=== PATIENT | female | born 1935 | race Caucasian/White ===

== ENCOUNTER 2022-05-20 12:36 | Inpatient (IN) | payer OTHER ==
[~2022-05-20] VITALS: Ht 160 cm; Wt 55.8 kg
[2022-05-20 12:54] VITALS: BP_SYST 135
--- NOTE | 2022-05-20 13:05 | NUR ---
Patient to ER bed 7 to gown for evaluation. Side rails up. Report given to .
--- NOTE | 2022-05-20 13:10 | NUR ---
PT CAME IN TO ED VIA AMBULANCE ACCOMPANIED BY DAUGHTER. PT IS AOX3 DAUGHTER STATES PT HAS DEMENTIA. PT LIVES IN ASSISSTED LIVING AND FELL OFF A ROLLING CHAIR WHILE ATTEMPTING TO PUT SOMETHING AWAY. PT STATES PAIN IS 7/10 ON LEFT ARM AND LEFT LEG WHEN ATTEMTING TO MOVE IT. PLACED ON MONITOR. SIDERAILS UP AND BED AT LOWEST POSITION.
--- NOTE | 2022-05-20 13:15 | NUR ---
ER at bedside examining patient.
--- NOTE | 2022-05-20 14:50 | NUR ---
Dr. REYNOSO at bedside examining patient.
[2022-05-20] MEDS ORDERED: LORazepam 2 MG/ML VIAL IVP PRN (17:15)
[2022-05-20] MEDS ORDERED: POTASSIUM CHLORIDE 20 MEQ TAB.PRT.SR PO PRN (17:15)
[2022-05-20] MEDS ORDERED: MUPIROCIN 2% TOPICAL OINTMENT 22 GM NS PRN (17:15)
[2022-05-20] MEDS ORDERED: DOCUSATE SODIUM 100 MG CAPSULE PO PRN (17:15)
[2022-05-20] MEDS ORDERED: ACETAMINOPHEN 325 MG TABLET PO PRN ×2 (17:15→17:30)
[2022-05-20] MEDS ORDERED: ONDANSETRON HCL 4 MG/2 ML VIAL IVP PRN (17:15)
--- NOTE | 2022-05-20 17:34 | NUR ---
Pt apeared to have a short syncapole episode. Pt currently a&o x 4. VSS. IV started on right av and fluids administered per MD.
[2022-05-20] MEDS ORDERED: NACL 0.9% 1,000 ML IV ONE (18:00)
--- NOTE | 2022-05-20 18:01 | NUR ---
Admit bed requested Patient will be admitted to care of . Admitted to MS unit. Diagnosis LEFT FEMUR FRACTURE Inpatient (Yes or No) Y Observation (Yes or No) N Orientation concerns or request close to nursing station (Yes or No) N Covid Status N On vent or bipap N Isolation requirements N Needs a sitter N From Home (Yes or if No enter name of facility) YES Requires Dialysis (Yes or No) N Med Rec Completed (Yes of No) Y Addendum: 05/20/22 at 1849 by [email or web address] FROM [facility]
[2022-05-20 18:28] LABS: ANION GAP 11 (5-15); CALCIUM 8.4 mg/dL (8.4-11.0); CHLORIDE 107 mmol/L (98-107); CREATININE 0.78 mg/dL (0.55-1.30); GLUCOSE 146 mg/dL (70-99); UREA NITROGEN, BLOOD 15 mg/dL (8-21)
[2022-05-20 18:34] LABS: BASOPHILS % (AUTO) 0.3 % (0.0-2.0); EOSINOPHILS % (AUTO) 0.1 % (0.0-4.0); HEMOGLOBIN 11.9 g/dL (12.0-16.0); LYMPHOCYTES # (AUTO) 1.1 K/uL (1.0-5.5); LYMPHOCYTES % (AUTO) 10.8 % (20.5-51.5); MEAN CORPUSCULAR HEMOGLOBIN 31 pg (27-31); MEAN CORPUSCULAR HGB CONC 34 % (32-36); MEAN CORPUSCULAR VOLUME 92 fL (79.0-98.0); MONOCYTES % (AUTO) 10.2 % (1.7-9.3); NEUTROPHILS # (AUTO) 7.9 K/uL (1.8-7.7); NEUTROPHILS % (AUTO) 78.6 % (40.0-70.0); PLATELET COUNT (AUTO) 190 K/uL (130-430); RED BLOOD CELL COUNT(AUTO) 3.81 MIL/uL (4.2-6.2); RED CELL DISTRIBUTION WIDTH 13.6 % (9.0-15.0); WHITE BLOOD COUNT (AUTO) 10.1 K/uL (4.8-10.8)
[2022-05-20] MEDS: MAGNESIUM SULFATE 50 ML IV PRN (18:43)
--- NOTE | 2022-05-20 18:59 | NUR ---
Magnesium IV pulled but not given. Charted as given, but wasn't given. Will return unused bag to pharmacy.
[2022-05-20] MEDS ORDERED: DONE10TA44 PO (19:25)
[2022-05-20] MEDS ORDERED: MEMA10TA56 PO (19:25)
[2022-05-20] MEDS ORDERED: ERGO1250 (19:25)
[2022-05-20] MEDS ORDERED: [UNRECOGNIZED DRUG - CODE] PO (19:25)
[2022-05-20] MEDS ORDERED: SYN50 PO (19:25)
--- NOTE | 2022-05-20 19:26 | NUR ---
Medication reconciliation completed with information provided by DAUGHTER AT BEDSIDE. Any prior medication reconciliation on file was reviewed and corrected.
--- NOTE | 2022-05-20 19:51 | NUR ---
Pt in mild pain since arival, but prefers no pain medication unless untollerable. Will continue to monitor.
--- NOTE | 2022-05-20 22:42 | NUR ---
Report given to Mario [facility]NS[facility]. Pt l;aet and orient x 2 per baseline, VSS. no signs of acute distress. Voided 300 mL vi puir wick since time in ER.
--- NOTE | 2022-05-20 22:46 | NUR ---
Patient will be admitted to care of Tigre GALVEZ Admitted to [facility] unit. Will go to room 103a. Belongings list completed. Complete and up to date summary report printed. SBAR report to be given at bedside with opportunity for questions.
[2022-05-20 23:08] VITALS: BP_SYST 144
--- NOTE | 2022-05-20 23:08 | NUR ---
Admission Note Received patient from ER with diagnosis of LEFT FEMUR FRACTURE. Initial Plan of Care discussed-patient verbalized understanding. Oriented to room, call light, pain management and safety.
[2022-05-20] MEDS: MORPHINE 2 MG/ML INJ. SYRINGE IVP PRN (23:25)
[2022-05-21 00:33] VITALS: BP_SYST 113
[2022-05-21] MEDS: MORPHINE 2 MG/ML INJ. SYRINGE IVP PRN ×2 (03:25→22:28)
--- NOTE | 2022-05-21 03:25 | NUR ---
PAIN/NEW IV IV AT RIGHT AC NOT FLUSHING WELL, REDNESS NOTED IN AREA, REMOVED AT THIS TIME, CATHETER FULLY INTACT, NO ACTIVE BLEEDING. NEW IV INSERTED AT RIGHT WRIST, 22 GAUGE, PATIENT TOLERATED WELL. PRN MEDICATION GIVEN FOR PAIN AT THIS TIME. WILL MONITOR AND REASSESS.
--- NOTE | 2022-05-21 06:28 | NUR ---
CLOSING NOTE PATIENT IN BED, RESTING AT THIS TIME. NO S/S OF ACUTE DISTRESS. BREATHING EVEN AND UNLABORED. IV SITE IS PATENT, NO SIGNS OF INFILTRATION OR INFECTION NOTED. ALL NEEDS MET THROUGHOUT SHIFT. FALL, SAFETY PRECAUTIONS MAINTAINED THROUGHOUT SHIFT. WILL CONTINUE TO MONITOR UNTIL PATIENT CARE IS ENDORSED TO ONCOMING DAYSHIFT NURSE.
[2022-05-21 06:37] LABS: BASOPHILS % (AUTO) 0.3 % (0.0-2.0); EOSINOPHILS % (AUTO) 0.1 % (0.0-4.0); HEMOGLOBIN 10.2 g/dL (12.0-16.0); LYMPHOCYTES # (AUTO) 1.3 K/uL (1.0-5.5); LYMPHOCYTES % (AUTO) 13.9 % (20.5-51.5); MEAN CORPUSCULAR HEMOGLOBIN 31 pg (27-31); MEAN CORPUSCULAR HGB CONC 35 % (32-36); MEAN CORPUSCULAR VOLUME 89 fL (79.0-98.0); MONOCYTES # (AUTO) 1.2 K/uL (0.0-1.0); MONOCYTES % (AUTO) 12.4 % (1.7-9.3); NEUTROPHILS % (AUTO) 73.3 % (40.0-70.0); PLATELET COUNT (AUTO) 220 K/uL (130-430); RED BLOOD CELL COUNT(AUTO) 3.25 MIL/uL (4.2-6.2); RED CELL DISTRIBUTION WIDTH 13.4 % (9.0-15.0); WHITE BLOOD COUNT (AUTO) 9.6 K/uL (4.8-10.8)
[2022-05-21 07:13] LABS: ANION GAP 9 (5-15); CALCIUM 8.3 mg/dL (8.4-11.0); CHLORIDE 106 mmol/L (98-107); CREATININE 0.63 mg/dL (0.55-1.30); GLUCOSE 133 mg/dL (70-99); UREA NITROGEN, BLOOD 15 mg/dL (8-21)
[2022-05-21 13:41] VITALS: BP_SYST 93
[2022-05-21 17:27] VITALS: BP_SYST 107
--- NOTE | 2022-05-21 19:15 | NUR ---
OPENING NOTE REPORT RECEIVED FROM DAYSHIFT NURSE. PATIENT RECEIVED LYING IN BED, RESTING. NO S/S OF ACUTE DISTRESS. BREATHING EVEN AND UNLABORED. IV SITE PATENT, NO SIGNS OF INFILTRATION OR INFECTION NOTED. CALL LIGHT WITH PATIENT. BED ALARM ON. BED IS LOCKED AND AT LOWEST POSITION. WILL CONTINUE TO MONITOR.
--- NOTE | 2022-05-21 19:19 | NUR ---
patient confused but easily reoriented. no pain at rest. shoulder elevated and knee brace on. pt using purewick on/off. spoke with family regarding d/c planning.
[2022-05-21] MEDS: DONEPEZIL HCL 5 MG TABLET (ARICEPT) PO SCH (20:13)
[2022-05-21] MEDS: MEMANTINE HCL 5 MG TABLET PO SCH (20:13)
[2022-05-22 01:32] VITALS: BP_SYST 111
[2022-05-22] MEDS: LEVOTHYROXINE SODIUM 0.05 MG TABLET PO SCH (06:17)
--- NOTE | 2022-05-22 06:46 | NUR ---
CLOSING NOTE PATIENT IN BED, RESTING AT THIS TIME. NO S/S OF ACUTE DISTRESS. BREATHING EVEN AND UNLABORED. IV SITE PATENT, NO SIGNS OF INFILTRATION OR INFECTION NOTED. ALL NEEDS MET THROUGHOUT SHIFT. FALL, SAFETY PRECAUTIONS MAINTAINED THROUGHOUT SHIFT. WILL CONTINUE TO MONITOR UNTIL PATIENT CARE IS ENDORSED TO ONCOMING DAYSHIFT NURSE.
[2022-05-22 08:00] VITALS: BP_SYST 119
[2022-05-22] MEDS: MEMANTINE HCL 5 MG TABLET PO SCH ×2 (08:34→22:14)
[2022-05-22 11:35] VITALS: BP_SYST 114
[2022-05-22 18:13] VITALS: BP_SYST 116
--- NOTE | 2022-05-22 19:10 | NUR ---
pt a&o throughout shift. no c/o pain with rest, denies offer of pain medication. braces on. family at bedside. fall/safety precautions in place. good po intake.
--- NOTE | 2022-05-22 19:55 | NUR ---
Opening note Received patient awake, resting in bed, AOx2. No distress and presently denies pain. Nonlabored breathing on room air. IV to right wrist is saline locked and patent. She has immobilizer on left knee. Bed is locked in lowest position, side rails up 3x and call light w/in reach.
[2022-05-22 20:00] VITALS: BP_SYST 124
[2022-05-22] MEDS: DONEPEZIL HCL 5 MG TABLET (ARICEPT) PO SCH (22:14)
--- NOTE | 2022-05-22 22:14 | NUR ---
Meds Scheduled meds given. She swallowed pills whole, two at a time with water. She was stating that she was waiting for bus to take her [place] [facility]; able to redirect to time and location. She said forgot she was in hospital and thought it was Tuesday.
--- NOTE | 2022-05-23 00:55 | NUR ---
Incontinent Patient had small soft formed bowel movement and purewick dislodged. She was provided with yulia-care, new pad, linens and replaced purewick.
[2022-05-23 01:32] VITALS: BP_SYST 107
[2022-05-23] MEDS: LEVOTHYROXINE SODIUM 0.05 MG TABLET PO SCH (06:35)
[2022-05-23 08:00] VITALS: BP_SYST 106
[2022-05-23] MEDS: MEMANTINE HCL 5 MG TABLET PO SCH ×2 (08:52→20:17)
[2022-05-23 11:37] VITALS: BP_SYST 107
[2022-05-23 16:55] VITALS: BP_SYST 112
--- NOTE | 2022-05-23 18:20 | NUR ---
vss, no c/o pain at rest. left sided extremities remain in braces and elevated. pt remains in good spirits with good po intake. d/c planning.
[2022-05-23] MEDS: DONEPEZIL HCL 5 MG TABLET (ARICEPT) PO SCH (20:17)
[2022-05-24] MEDS: MORPHINE 2 MG/ML INJ. SYRINGE IVP PRN (04:21)
[2022-05-24] MEDS: LEVOTHYROXINE SODIUM 0.05 MG TABLET PO SCH (06:16)
--- NOTE | 2022-05-24 08:00 | NUR ---
received patient from pm nurse alert and oriented to self, pleasantly confused, able to verbalize needs, no c/o pain or discomfort at this time, will assume all care of patient
[2022-05-24] MEDS ORDERED: ASPI-1457 PO (08:09)
[2022-05-24] MEDS ORDERED: ASPIRIN 81 MG TABLET(ECOTRIN) PO ONE (09:00)
[2022-05-24] MEDS: MEMANTINE HCL 5 MG TABLET PO SCH ×2 (09:05→20:22)
[2022-05-24 11:25] VITALS: BP_SYST 120
[2022-05-24 15:30] VITALS: BP_SYST 108
--- NOTE | 2022-05-24 16:00 | NUR ---
provided daughter detailed update on patients condition and any changes, all concerns addressed
[2022-05-24 20:00] VITALS: BP_SYST 127
[2022-05-24] MEDS: DONEPEZIL HCL 5 MG TABLET (ARICEPT) PO SCH (20:22)
[2022-05-25 00:22] VITALS: BP_SYST 108
[2022-05-25] MEDS: LEVOTHYROXINE SODIUM 0.05 MG TABLET PO SCH (06:01)
--- NOTE | 2022-05-25 06:48 | NUR ---
PATIENT IN BED RESTING, CONFUSED, LEFT ARM WITH HUMERUS FX AND LEFT LEG WITH PATELLA FX, LEFT LEG WITH BRACE IN PLACE, PITTING EDEMA TO LEFT ARM AND MILD EDEMA TO LEFT LEG. PATIENT ONLY C/O PAIN WITH TURNING AND CLEANING PATIENT, VSS, NO PRN MEDICATIONS GIVEN DURING THIS SHIFT.
[2022-05-25 07:52] VITALS: BP_SYST 147
[2022-05-25] MEDS: MEMANTINE HCL 5 MG TABLET PO SCH ×2 (09:22→20:10)
[2022-05-25 11:21] VITALS: BP_SYST 117
[2022-05-25] MEDS: ASPIRIN 81 MG TABLET(ECOTRIN) PO SCH (13:29)
[2022-05-25 15:39] VITALS: BP_SYST 114
--- NOTE | 2022-05-25 18:00 | NUR ---
Patient had an uneventful day, resting quietly in bed, no c/o pain. patient for discharge to SNF, awaiting placement. Continue with POC
[2022-05-25 20:00] VITALS: BP_SYST 102
[2022-05-25] MEDS: DONEPEZIL HCL 5 MG TABLET (ARICEPT) PO SCH (20:10)
[2022-05-26 01:06] VITALS: BP_SYST 111
[2022-05-26] MEDS: LEVOTHYROXINE SODIUM 0.05 MG TABLET PO SCH (06:01)
[2022-05-26 07:57] VITALS: BP_SYST 103
[2022-05-26] MEDS: ASPIRIN 81 MG TABLET(ECOTRIN) PO SCH (09:52)
[2022-05-26] MEDS: MEMANTINE HCL 5 MG TABLET PO SCH ×2 (09:53→20:38)
[2022-05-26 11:20] VITALS: BP_SYST 104
[2022-05-26 16:29] VITALS: BP_SYST 109
--- NOTE | 2022-05-26 18:47 | NUR ---
PATIENT RESTING COMFORTABLY IN BED, NO APPARENT DISTRESS NOT. C/O NAUSEA WITH LUNCH WHICH SUBSIDED SPONTANEOUSLY. PATIENT INSTRUCTED TO MAINTAIN NPO AFTER MIDNIGHT FOR SURGERY TOMORROW, PT'S DAUGHTER ALSO INFORMED. SNF PLACEMENT PENDING. CONTINUE WITH POC.
[2022-05-26 20:00] VITALS: BP_SYST 110
[2022-05-26] MEDS: DONEPEZIL HCL 5 MG TABLET (ARICEPT) PO SCH (20:37)
[2022-05-27] VITALS (7 sets, daily range): BP systolic 114–150
[2022-05-27] MEDS: LEVOTHYROXINE SODIUM 0.05 MG TABLET PO SCH (06:02)
[2022-05-27 07:08] LABS: BASOPHILS % (AUTO) 0.7 % (0.0-2.0); EOSINOPHILS # (AUTO) 0.1 K/uL (0.0-0.4); EOSINOPHILS % (AUTO) 1.7 % (0.0-4.0); HEMATOCRIT 25.7 % (36-48); HEMOGLOBIN 8.9 g/dL (12.0-16.0); LYMPHOCYTES # (AUTO) 0.9 K/uL (1.0-5.5); LYMPHOCYTES % (AUTO) 12.6 % (20.5-51.5); MEAN CORPUSCULAR HEMOGLOBIN 32 pg (27-31); MEAN CORPUSCULAR HGB CONC 35 % (32-36); MEAN CORPUSCULAR VOLUME 92 fL (79.0-98.0); MONOCYTES # (AUTO) 1.1 K/uL (0.0-1.0); MONOCYTES % (AUTO) 14.9 % (1.7-9.3); NEUTROPHILS % (AUTO) 70.1 % (40.0-70.0); PLATELET COUNT (AUTO) 319 K/uL (130-430); RED CELL DISTRIBUTION WIDTH 13.7 % (9.0-15.0); WHITE BLOOD COUNT (AUTO) 7.2 K/uL (4.8-10.8)
[2022-05-27 07:37] LABS: PROTHROMBIN TIME 9.8 SECS (9.5-12.5)
[2022-05-27 07:41] LABS: ANION GAP 8 (5-15); CALCIUM 8.8 mg/dL (8.4-11.0); CHLORIDE 104 mmol/L (98-107); GLUCOSE 102 mg/dL (70-99); UREA NITROGEN, BLOOD 18 mg/dL (8-21)
[2022-05-27 08:14] LABS: BILIRUBIN,URINE NEGATIVE (NEGATIVE); BLOOD, URINE NEGATIVE (NEGATIVE); CLARITY/URINE CLEAR (CLEAR); COLOR,URINE YELLOW (YELLOW); GLUCOSE,URINE NEGATIVE (NEGATIVE); KETONES,URINE NEGATIVE (NEGATIVE); LEUKOCYTE ESTERASE ,URINE NEGATIVE (NEGATIVE); NITRITE, URINE NEGATIVE (NEGATIVE); PH,URINE 6.5 (5.0-8.0); PROTEIN URINE NEGATIVE (NEGATIVE)
[2022-05-27] MEDS: MEMANTINE HCL 5 MG TABLET PO SCH ×2 (09:00→20:44)
[2022-05-27] MEDS: ASPIRIN 81 MG TABLET(ECOTRIN) PO SCH (09:00)
[2022-05-27] MEDS ORDERED: ceFAZolin SODIUM 1 GM VIAL ONE (10:21)
[2022-05-27] MEDS ORDERED: DEXAMETHASONE SOD PHOSPHATE 4 MG/ML VIAL ONE (10:21)
[2022-05-27] MEDS ORDERED: MIDAZOLAM HCL 2 MG/2 ML VIAL (VERSED) ONE (10:21)
[2022-05-27] MEDS ORDERED: fentaNYL CITRATE/PF 100 MCG/2 ML AMP ONE (10:21)
[2022-05-27] MEDS ORDERED: LR 1,000 ML IV.SOLN IV ONE (10:21)
[2022-05-27] MEDS ORDERED: PROPOFOL 200MG/ 20ML VIAL (DIPRIVAN) IV ONE (10:21)
[2022-05-27] MEDS ORDERED: ONDANSETRON HCL 4 MG/2 ML VIAL ONE (10:21)
[2022-05-27] MEDS ORDERED: METOCLOPRAMIDE HCL 10 MG/2 ML VIAL ONE (10:21)
[2022-05-27] MEDS ORDERED: NS IRRIG SOLN 1000 ML IR ONE (10:21)
[2022-05-27] MEDS ORDERED: HYDROmorphone 1 MG/ML INJ. CARTRIDGE IVP PRN (12:45)
[2022-05-27] MEDS ORDERED: KETOROLAC TROMETHAMINE 30 MG VIAL IVP PRN (12:45)
[2022-05-27] MEDS ORDERED: ONDANSETRON HCL 4 MG/2 ML VIAL IVP PRN (12:45)
[2022-05-27] MEDS ORDERED: NALOXONE HCL 0.4 MG/ML AMP (NARCAN) IVP PRN ×2 (12:45)
[2022-05-27] MEDS ORDERED: LR 1,000 ML IV SCH (12:45)
[2022-05-27] MEDS ORDERED: KETOROLAC TROMETHAMINE 30 MG VIAL ONE (13:12)
--- NOTE | 2022-05-27 13:30 | NUR ---
RECEIVED PT BACK FROM SURGERY. PT IS A/A/OX1, CONFUSED HX OF DEMENTIA. PT IS SLEEPING BUT EASILY AROUSABLE. VITAL SIGNS STABLE. AFEBRILE. LEFT LEG DRESSING C/D/I WITH IMMOBILIZER ON. RIGHT LEG SCD ON. SKIN ASSESSMENT DONE, NO SKIN ISSUES NOTED. PT POSITIONED TO COMFORT. WILL MONITOR PT CLOSELY.
[2022-05-27] MEDS: MORPHINE 2 MG/ML INJ. SYRINGE IVP PRN (14:14)
--- NOTE | 2022-05-27 20:00 | NUR ---
OPENING Patient resting in bed, unlabored breathing on room air. AOx1. Responds appropriately to questions but confused. Immobilizer to left leg s/p surgery today. Denies numbness or tingling, skin warm and dry, patient able to wiggle toes. Patient denies pain at this time. Dressing to left leg clean/dry/intact. Bruising noted to left arm. Safety precautions in place.
[2022-05-27] MEDS: DONEPEZIL HCL 5 MG TABLET (ARICEPT) PO SCH (20:44)
[2022-05-28] VITALS: BP_SYST 122
--- NOTE | 2022-05-28 01:07 | NUR ---
ROUNDS Patient asleep in bed, unlabored breathing on room air. Safety precautions in place.
[2022-05-28] MEDS: MORPHINE 2 MG/ML INJ. SYRINGE IVP PRN ×3 (02:42→21:35)
--- NOTE | 2022-05-28 05:37 | NUR ---
Patient resting in bed, unlabored breathing on room air, no distress noted. Immobilizer to left leg in place, dressing CDI, able to move toes. Given morphine PRN for complaint of pain to left knee with relief. Patient incontinent of urine. Gown and linens changed. Purewick in place. Patient forgetful/confused but at times is oriented to the fact that she is in the hospital. Reorientation provided as needed. Safety precautions in place.
[2022-05-28] MEDS: LEVOTHYROXINE SODIUM 0.05 MG TABLET PO SCH (06:39)
--- NOTE | 2022-05-28 06:52 | NUR ---
Spoke on the phone with patient's daughter Emerald who stated she will visit later today and would like to speak to the leather case finisher. Patient resting in bed, no distress noted, CSM to left lower extremity intact. With reminders and instruction, patient able to demonstrate correct technique with incentive spirometer, reaching 1000-1500mL. Safety precautions in place.
[2022-05-28 06:54] LABS: BASOPHILS % (AUTO) 0.3 % (0.0-2.0); EOSINOPHILS % (AUTO) 0.5 % (0.0-4.0); HEMATOCRIT 26.2 % (36-48); HEMOGLOBIN 8.9 g/dL (12.0-16.0); LYMPHOCYTES # (AUTO) 1.5 K/uL (1.0-5.5); LYMPHOCYTES % (AUTO) 15.5 % (20.5-51.5); MEAN CORPUSCULAR HEMOGLOBIN 31 pg (27-31); MEAN CORPUSCULAR HGB CONC 34 % (32-36); MEAN CORPUSCULAR VOLUME 92 fL (79.0-98.0); MONOCYTES # (AUTO) 1.6 K/uL (0.0-1.0); MONOCYTES % (AUTO) 16.3 % (1.7-9.3); NEUTROPHILS # (AUTO) 6.5 K/uL (1.8-7.7); NEUTROPHILS % (AUTO) 67.4 % (40.0-70.0); PLATELET COUNT (AUTO) 363 K/uL (130-430); RED BLOOD CELL COUNT(AUTO) 2.86 MIL/uL (4.2-6.2); RED CELL DISTRIBUTION WIDTH 13.9 % (9.0-15.0); WHITE BLOOD COUNT (AUTO) 9.7 K/uL (4.8-10.8)
[2022-05-28 07:42] LABS: ANION GAP 9 (5-15); CALCIUM 8.5 mg/dL (8.4-11.0); CHLORIDE 101 mmol/L (98-107); CREATININE 0.83 mg/dL (0.55-1.30); GLUCOSE 91 mg/dL (70-99); UREA NITROGEN, BLOOD 18 mg/dL (8-21)
--- NOTE | 2022-05-28 07:51 | NUR ---
OPENING NOTES: PT IN BED WITH EYES CLOSED. A/O X 1. REPOSITIONED PT WITH MAINSPRING FORMER BRACE END TO EAT BREAKFAST. NO S/S OF DISTRESS. PAIN REPORTED AT LEVEL 2. BREATHING IS EVEN AND UNLABORED ON RA. ALL NEEDS MET AT THIS TIME , SAFETY CHECKS MADE AND CALL LIGHT WITHIN REACH.
[2022-05-28 08:00] VITALS: BP_SYST 124
--- NOTE | 2022-05-28 08:07 | NUR ---
MD: DR MARKS AT BEDSIDE TALKING WITH PT. NO NEW ORDERS AT THIS TIME.
[2022-05-28] MEDS: MEMANTINE HCL 5 MG TABLET PO SCH ×2 (08:51→21:34)
[2022-05-28] MEDS: ASPIRIN 81 MG TABLET(ECOTRIN) PO SCH (08:51)
[2022-05-28 11:51] VITALS: BP_SYST 113
--- NOTE | 2022-05-28 12:00 | NUR ---
ROUNDS: PT IN BED EATING LUNCH WITH FAMILY AT BEDSIDE. NO S/S OF DISTRESS OR PAIN REPORTED. ALL NEEDS MET AT THIS TIME, SAFETY CHECKS MADE AND CALL LIGHT WITHIN REACH.
--- NOTE | 2022-05-28 12:48 | NUR ---
NOTES: SPOKE WITH GUARD SUPERVISORDarby DEBRA. SHE INFORMED THAT THE PT NEEDS PHYSICAL THERAPY AND TREATMENT NOTED BEFORE A BED CAN BE FOUND AT [facility]. CALLING DR RON NOW FOR PT ORDERS.
--- NOTE | 2022-05-28 14:00 | NUR ---
ROUNDS: PT IN BED WITH FAMILY AT BEDSIDE. NO S/S OF DISTRESS OR PAIN REPORTED. UPDATED FAMILY ABOUT PHYSICAL THERAPY ETA.
[2022-05-28 17:31] VITALS: BP_SYST 105
--- NOTE | 2022-05-28 18:08 | NUR ---
CLOSING NOTES: PT IN BED EATING DINNER AND WATCHING TV. NO S/S OF DISTRESS OR PAIN REPORTED. BREATHING IS EVEN AND UNLABORED ON RA. ALL NEEDS MET AT THIS TIME, SAFETY CHECKS MADE AND CALL LIGHT WITHIN REACH. WILL ENDORSE TO ASSOCIATE JUSTICE NURSE.
[2022-05-28 20:00] VITALS: BP_SYST 125
--- NOTE | 2022-05-28 20:00 | NUR ---
OPENING Patient resting in bed, unlabored breathing on room air. AOx1-2. Responds appropriately to questions but confused. Immobilizer to left leg. Denies numbness or tingling, patient able to wiggle toes. Dressing to left leg clean/dry/intact. Bruising noted to left arm. Safety precautions in place.
[2022-05-28] MEDS: DONEPEZIL HCL 5 MG TABLET (ARICEPT) PO SCH (21:34)
[2022-05-29] VITALS: BP_SYST 121
--- NOTE | 2022-05-29 | NUR ---
ROUNDS Patient resting in bed, no distress noted. On room air. Given morphine PRN for report of pain to left knee. CSM to left lower extremity intact. Patient spoke with her on the phone earlier. Incontinent of urine. Linens changed. Purewick in place. Safety maintained.
[2022-05-29] MEDS: LEVOTHYROXINE SODIUM 0.05 MG TABLET PO SCH (06:17)
--- NOTE | 2022-05-29 07:29 | NUR ---
CLOSING Patient resting in bed, no distress noted. Denies pain this morning. Immobilizer to left leg. Left arm in sling with bruising noted, tender to touch. Alert to self and place, forgetful but reorients. Safety precautions in place.
[2022-05-29 07:47] LABS: BASOPHILS # (AUTO) 0.1 K/uL (0.0-0.2); BASOPHILS % (AUTO) 0.7 % (0.0-2.0); EOSINOPHILS # (AUTO) 0.2 K/uL (0.0-0.4); EOSINOPHILS % (AUTO) 2.4 % (0.0-4.0); HEMATOCRIT 26.1 % (36-48); HEMOGLOBIN 8.9 g/dL (12.0-16.0); LYMPHOCYTES # (AUTO) 1.4 K/uL (1.0-5.5); LYMPHOCYTES % (AUTO) 16.6 % (20.5-51.5); MEAN CORPUSCULAR HEMOGLOBIN 31 pg (27-31); MEAN CORPUSCULAR HGB CONC 34 % (32-36); MEAN CORPUSCULAR VOLUME 92 fL (79.0-98.0); MONOCYTES # (AUTO) 1.5 K/uL (0.0-1.0); MONOCYTES % (AUTO) 17.4 % (1.7-9.3); NEUTROPHILS # (AUTO) 5.4 K/uL (1.8-7.7); NEUTROPHILS % (AUTO) 62.9 % (40.0-70.0); PLATELET COUNT (AUTO) 364 K/uL (130-430); RED BLOOD CELL COUNT(AUTO) 2.85 MIL/uL (4.2-6.2); RED CELL DISTRIBUTION WIDTH 14.1 % (9.0-15.0); WHITE BLOOD COUNT (AUTO) 8.7 K/uL (4.8-10.8)
[2022-05-29 08:00] VITALS: BP_SYST 122
[2022-05-29 08:10] LABS: ANION GAP 8 (5-15); CALCIUM 8.3 mg/dL (8.4-11.0); CHLORIDE 101 mmol/L (98-107); GLUCOSE 91 mg/dL (70-99); UREA NITROGEN, BLOOD 18 mg/dL (8-21)
--- NOTE | 2022-05-29 08:32 | NUR ---
OPENING NOTES: PT IN BED WITH EYES CLOSED. RESPONDED TO NAME. REPOSITIONED PT WITH PANAMA HAT HYDRAULIC PRESS OPERATOR TO EAT BREAKFAST. NO S/S OF DISTRESS OR PAIN REPORTED. BREATHING IS EVEN AND UNLABORED ON RA. ALL NEEDS MET AT THIS TIME , SAFETY CHECKS MADE AND CALL LIGHT WITHIN REACH.
[2022-05-29] MEDS: ENOXAPARIN SODIUM 30 MG/0.3 ML SYRINGE SUBCUT SCH (08:55)
[2022-05-29] MEDS: MEMANTINE HCL 5 MG TABLET PO SCH ×2 (08:55→21:46)
[2022-05-29] MEDS: ASPIRIN 81 MG TABLET(ECOTRIN) PO SCH (08:55)
--- NOTE | 2022-05-29 11:24 | NUR ---
NOTES: SPOKE WITH DAUGHTER TAE, ANSWERED HER QUESTIONS AND UPDATED HER ON THE PT STATUS. SHE VERBALIZED UNDERSTANDING AND SAID SHE WOULD BE VISITING TODAY WITH THE PT'S .
[2022-05-29 12:00] VITALS: BP_SYST 114
--- NOTE | 2022-05-29 12:43 | NUR ---
ROUNDS: FAMILY AT BEDSIDE. PT EATING LUNCH. ANSWERED FAMILY QUESTIONS AND GOT THEM CHAIRS. ALL NEEDS MET AT THIS TIME, SAFETY CHECKS MADE AND CALL LIGHT WITHIN REACH.
[2022-05-29 16:00] VITALS: BP_SYST 118
[2022-05-29] MEDS: MORPHINE 2 MG/ML INJ. SYRINGE IVP PRN (17:59)
--- NOTE | 2022-05-29 18:17 | NUR ---
CLOSING NOTES: PT IS EATING DINNER AND WATCHING TV. NO S/S OF DISTRESS. PAIN REPORTED AND PAIN MEDICATION ADMINISTERED. BREATHING IS EVEN AND UNLABORED ON RA. ALL NEEDS MET AT THIS TIME, SAFETY CHECKS MADE AND CALL LIGHT WITHIN REACH.
[2022-05-29 21:00] VITALS: BP_SYST 112
[2022-05-29] MEDS: DONEPEZIL HCL 5 MG TABLET (ARICEPT) PO SCH (21:46)
[2022-05-30 02:02] VITALS: BP_SYST 121
[2022-05-30] MEDS: LEVOTHYROXINE SODIUM 0.05 MG TABLET PO SCH (06:23)
--- NOTE | 2022-05-30 07:54 | NUR ---
OPENING NOTES: PT IN BED A/O X 1. PERFORMED NEURO ASSESSMENT ON PT. PT HAVING PAIN TO TOUCH ON LEFT ARM AND DIFFICULTY LIFTING IT. ABLE TO MOVE LEFT HAND. LEFT LEG IS ELEVATED WITH PILLOW SUPPORT, TOES ARE WARM TO TOUCH, PINK AND PT IS ABLE TO WIGGLE TOES. NO S/S OF DISTRESS OR PAIN REPORTED. BREATHING IS EVEN AND UNLABORED ON RA. ALL NEEDS MET AT THIS TIME, SAFETY CHECKS MADE AND CALL LIGHT WITHIN REACH.
[2022-05-30 08:00] VITALS: BP_SYST 111
[2022-05-30 08:21] LABS: BASOPHILS # (AUTO) 0.1 K/uL (0.0-0.2); BASOPHILS % (AUTO) 0.6 % (0.0-2.0); EOSINOPHILS # (AUTO) 0.2 K/uL (0.0-0.4); EOSINOPHILS % (AUTO) 2.5 % (0.0-4.0); HEMATOCRIT 25.5 % (36-48); HEMOGLOBIN 8.7 g/dL (12.0-16.0); LYMPHOCYTES # (AUTO) 1.3 K/uL (1.0-5.5); LYMPHOCYTES % (AUTO) 14.6 % (20.5-51.5); MEAN CORPUSCULAR HEMOGLOBIN 31 pg (27-31); MEAN CORPUSCULAR HGB CONC 34 % (32-36); MEAN CORPUSCULAR VOLUME 91 fL (79.0-98.0); MONOCYTES # (AUTO) 1.4 K/uL (0.0-1.0); NEUTROPHILS # (AUTO) 6.2 K/uL (1.8-7.7); NEUTROPHILS % (AUTO) 67.3 % (40.0-70.0); PLATELET COUNT (AUTO) 373 K/uL (130-430); RED CELL DISTRIBUTION WIDTH 13.8 % (9.0-15.0); WHITE BLOOD COUNT (AUTO) 9.2 K/uL (4.8-10.8)
[2022-05-30] MEDS: ENOXAPARIN SODIUM 30 MG/0.3 ML SYRINGE SUBCUT SCH (08:32)
[2022-05-30] MEDS: MEMANTINE HCL 5 MG TABLET PO SCH ×2 (08:32→21:14)
[2022-05-30] MEDS: ASPIRIN 81 MG TABLET(ECOTRIN) PO SCH (08:32)
[2022-05-30 08:40] LABS: ANION GAP 8 (5-15); CALCIUM 8.5 mg/dL (8.4-11.0); CHLORIDE 102 mmol/L (98-107); CREATININE 0.89 mg/dL (0.55-1.30); GLUCOSE 104 mg/dL (70-99); UREA NITROGEN, BLOOD 17 mg/dL (8-21)
--- NOTE | 2022-05-30 09:30 | NUR ---
ROUNDS: GAVE PT A BED BATH, CHANGED LINEN, APPLIED DEODORANT, MICHELET CARE, SHAMPOO CAP AND PT BRUSHED HER OWN TEETH. REPOSITIONED FOR COMFORT.
--- NOTE | 2022-05-30 10:24 | NUR ---
Pharmacy: PHARMACY CALLED THAT PT'S IV MORPHINE PRN HAD . CALLED DR MAHAJAN AND HE ORDERED NORCO [phone] PO Q8H PRN FOR THE PT. ORDERED PLACED.
[2022-05-30] MEDS ORDERED: NALOXONE HCL 0.4 MG/ML AMP (NARCAN) IVP PRN (10:30)
[2022-05-30 12:00] VITALS: BP_SYST 107
--- NOTE | 2022-05-30 12:22 | NUR ---
ROUNDS: PT SITTING UP IN BED EATING LUNCH. PT COMPLAINED OF FEELING COLD. GOT HER A BLANKET FROM THE WARMER AND WRAPPED IT AROUND HER SHOULDERS. NO S/S OF DISTRESS OR PAIN REPORTED. BREATHING IS EVEN AND UNLABORED. ALL NEEDS MET AT THIS TIME, SAFETY CHECKS MADE AND CALL LIGHT WITHIN REACH.
--- NOTE | 2022-05-30 13:05 | NUR ---
ROUNDS: FAMILY AT BEDSIDE. ANSWERED THEIR QUESTIONS AND UPDATED THEM ON PLAN OF CARE FOR PT. VERBALIZED UNDERSTANDING.
[2022-05-30 16:00] VITALS: BP_SYST 110
--- NOTE | 2022-05-30 16:23 | NUR ---
ROUNDS: PT IN BED WITH EYES CLOSED. NO S/S OF DISTRESS OR PAIN REPORTED. ALL NEEDS MET AT THIS TIME , SAFETY CHECKS MADE AND CALL LIGHT WITHIN REACH.
--- NOTE | 2022-05-30 18:21 | NUR ---
CLOSING NOTES: PT IS IN BED HAD JUST FINISHED EATING DINNER. PROVIDED MICHELET CARE. PT HAD URINATED. NO S/S OF DISTRESS OR PAIN REPORTED. BREATHING IS EVEN AND UNLABORED ON RA. ALL NEEDS MET AT THIS TIME, SAFETY CHECKS MADE AND CALL LIGHT WITHIN REACH.
[2022-05-30 20:00] VITALS: BP_SYST 125
[2022-05-30] MEDS: DONEPEZIL HCL 5 MG TABLET (ARICEPT) PO SCH (21:14)
[2022-05-31] MEDS: HYDROcodone/ACETAMIN 5-325 MG TAB (NORCO/ VICODIN) PO PRN ×3 (00:12→21:12)
[2022-05-31 03:06] VITALS: BP_SYST 122
[2022-05-31] MEDS: LEVOTHYROXINE SODIUM 0.05 MG TABLET PO SCH (06:02)
[2022-05-31 06:34] LABS: BASOPHILS # (AUTO) 0.1 K/uL (0.0-0.2); BASOPHILS % (AUTO) 0.7 % (0.0-2.0); EOSINOPHILS # (AUTO) 0.2 K/uL (0.0-0.4); EOSINOPHILS % (AUTO) 2.8 % (0.0-4.0); HEMATOCRIT 26.5 % (36-48); LYMPHOCYTES % (AUTO) 22.1 % (20.5-51.5); MEAN CORPUSCULAR HEMOGLOBIN 31 pg (27-31); MEAN CORPUSCULAR HGB CONC 34 % (32-36); MEAN CORPUSCULAR VOLUME 92 fL (79.0-98.0); MONOCYTES # (AUTO) 1.1 K/uL (0.0-1.0); MONOCYTES % (AUTO) 12.6 % (1.7-9.3); NEUTROPHILS # (AUTO) 5.5 K/uL (1.8-7.7); NEUTROPHILS % (AUTO) 61.8 % (40.0-70.0); PLATELET COUNT (AUTO) 417 K/uL (130-430); RED CELL DISTRIBUTION WIDTH 13.9 % (9.0-15.0); WHITE BLOOD COUNT (AUTO) 8.9 K/uL (4.8-10.8)
[2022-05-31 07:05] LABS: ANION GAP 8 (5-15); CALCIUM 8.3 mg/dL (8.4-11.0); CHLORIDE 104 mmol/L (98-107); CREATININE 0.83 mg/dL (0.55-1.30); GLUCOSE 89 mg/dL (70-99); UREA NITROGEN, BLOOD 16 mg/dL (8-21)
[2022-05-31 08:00] VITALS: BP_SYST 101
[2022-05-31] MEDS: ASPIRIN 81 MG TABLET(ECOTRIN) PO SCH (08:35)
[2022-05-31] MEDS: MEMANTINE HCL 5 MG TABLET PO SCH ×2 (08:36→21:11)
[2022-05-31] MEDS: ENOXAPARIN SODIUM 30 MG/0.3 ML SYRINGE SUBCUT SCH (08:36)
[2022-05-31 11:15] VITALS: BP_SYST 118
[2022-05-31 15:20] VITALS: BP_SYST 109
--- NOTE | 2022-05-31 15:55 | NUR ---
[facility] has not received authorization from [facility] for SNF
--- NOTE | 2022-05-31 16:11 | NUR ---
PHYSICAL THERAPY CO-SIGN The Physical Therapy Progress Notes documented by Tube Roller have been reviewed. Reviewed/Co-Signed by: Rafael Santos Documentation Done by:SAVAGE MORAN Addendum: 05/31/22 at 1611 by Rafael Santos PT Amended: Links added.
--- NOTE | 2022-05-31 18:46 | NUR ---
Shift Summary: patient is AAOX3-4. vitals are stable. patient and family updated on plan of care for shift. patient and family state they have no questions or concerns at this time. patient was able to sit on edge of bed with PT. will endorse to oncoming nurse. call light within reach, bed set to low, locked, and alarm on. q2h turns done during shift.
[2022-05-31 20:00] VITALS: BP_SYST 113
--- NOTE | 2022-05-31 20:19 | NUR ---
OPENING NOTES: Patient received from AM shift. Patient is confused AA&Ox1 very forgetful but and answer commands and express simple needs. Patient denies any pain or distress at this time. Patient is noted with a sling to the left arm and will express pain when the arm is moved, patient is able to installer molding and trim and move fingers with no discomfort, skin is warm to the touch and wrist pulse is palpable. Arm has been elevated with pillow for support. Soft brace is noted to the left lower extremity, and patient is post ORIF to the patella that has been completed on 05/27. Neuro Checks to lower extremity completed. Patient wiggles toes, is able to feel pressure, skin is warm to the touch and skin color is normal. Leg also has a been elevated with a pillow for support. No s/s of distress is noted and chest rise is even and unlabored on RA. Safety measures are in place as per protocol, will resume care.
[2022-05-31] MEDS: DONEPEZIL HCL 5 MG TABLET (ARICEPT) PO SCH (21:11)
[2022-06-01 00:14] VITALS: BP_SYST 107
[2022-06-01] MEDS: LEVOTHYROXINE SODIUM 0.05 MG TABLET PO SCH (06:10)
[2022-06-01] MEDS: HYDROcodone/ACETAMIN 5-325 MG TAB (NORCO/ VICODIN) PO PRN ×2 (06:13→14:13)
[2022-06-01 06:18] LABS: BASOPHILS % (AUTO) 0.6 % (0.0-2.0); EOSINOPHILS # (AUTO) 0.3 K/uL (0.0-0.4); EOSINOPHILS % (AUTO) 3.4 % (0.0-4.0); HEMOGLOBIN 8.9 g/dL (12.0-16.0); LYMPHOCYTES # (AUTO) 1.5 K/uL (1.0-5.5); LYMPHOCYTES % (AUTO) 18.4 % (20.5-51.5); MEAN CORPUSCULAR HEMOGLOBIN 31 pg (27-31); MEAN CORPUSCULAR HGB CONC 34 % (32-36); MEAN CORPUSCULAR VOLUME 91 fL (79.0-98.0); MONOCYTES % (AUTO) 12.5 % (1.7-9.3); NEUTROPHILS # (AUTO) 5.3 K/uL (1.8-7.7); NEUTROPHILS % (AUTO) 65.1 % (40.0-70.0); PLATELET COUNT (AUTO) 432 K/uL (130-430); RED BLOOD CELL COUNT(AUTO) 2.87 MIL/uL (4.2-6.2); RED CELL DISTRIBUTION WIDTH 14.1 % (9.0-15.0); WHITE BLOOD COUNT (AUTO) 8.1 K/uL (4.8-10.8)
[2022-06-01 06:49] LABS: ANION GAP 6 (5-15); CALCIUM 8.4 mg/dL (8.4-11.0); CHLORIDE 104 mmol/L (98-107); GLUCOSE 89 mg/dL (70-99); UREA NITROGEN, BLOOD 18 mg/dL (8-21)
--- NOTE | 2022-06-01 07:04 | NUR ---
CLOSING NOTES: CLOSING Patient resting in bed, no distress noted. Denies pain this morning. Immobilizer to left leg. Left arm in sling with bruising noted, tender to touch. Alert to self and place, forgetful but reorients. Safety precautions in place. Will differ care to AM shift nurse.
[2022-06-01 08:00] VITALS: BP_SYST 132
[2022-06-01] MEDS: MEMANTINE HCL 5 MG TABLET PO SCH ×2 (08:35→21:07)
[2022-06-01] MEDS: ENOXAPARIN SODIUM 30 MG/0.3 ML SYRINGE SUBCUT SCH (08:35)
[2022-06-01] MEDS: ASPIRIN 81 MG TABLET(ECOTRIN) PO SCH (08:35)
[2022-06-01 11:30] VITALS: BP_SYST 113
--- NOTE | 2022-06-01 15:39 | NUR ---
PHYSICAL THERAPY CO-SIGN The Physical Therapy Progress Notes documented by Filter Bed Placer have been reviewed. Reviewed/Co-Signed by: Rafael Santos Documentation Done by:SAVAGE MORAN Addendum: 06/01/22 at 1539 by Rafael Santos PT Amended: Links added.
[2022-06-01 16:35] VITALS: BP_SYST 126
[2022-06-01 20:00] VITALS: BP_SYST 101
[2022-06-01] MEDS: DONEPEZIL HCL 5 MG TABLET (ARICEPT) PO SCH (21:07)
[2022-06-02 02:21] VITALS: BP_SYST 131
[2022-06-02] MEDS: LEVOTHYROXINE SODIUM 0.05 MG TABLET PO SCH (06:39)
[2022-06-02 08:00] VITALS: BP_SYST 117
[2022-06-02] MEDS: ASPIRIN 81 MG TABLET(ECOTRIN) PO SCH (08:23)
[2022-06-02] MEDS: MEMANTINE HCL 5 MG TABLET PO SCH ×2 (08:23→22:15)
[2022-06-02] MEDS: ENOXAPARIN SODIUM 30 MG/0.3 ML SYRINGE SUBCUT SCH (08:23)
[2022-06-02 12:00] VITALS: BP_SYST 126; BP_SYST 140
[2022-06-02 16:00] VITALS: BP_SYST 121
--- NOTE | 2022-06-02 16:01 | NUR ---
PHYSICAL THERAPY CO-SIGN The Physical Therapy Progress Notes documented by Pest Control Service Technician have been reviewed. Reviewed/Co-Signed by: Rafael Santos Documentation Done by:SAVAGE MORAN Addendum: 06/02/22 at 1601 by Rafael Santos PT Amended: Links added.
[2022-06-02] MEDS: DONEPEZIL HCL 5 MG TABLET (ARICEPT) PO SCH (22:13)
[2022-06-03] MEDS: HYDROcodone/ACETAMIN 5-325 MG TAB (NORCO/ VICODIN) PO PRN ×4 (01:02→22:55)
--- NOTE | 2022-06-03 05:55 | NUR ---
closing notes pt was giving pain medication and was sleeping on and off. appear to be resting
[2022-06-03 08:00] VITALS: BP_SYST 109
[2022-06-03] MEDS: MEMANTINE HCL 5 MG TABLET PO SCH ×2 (08:41→21:00)
[2022-06-03] MEDS: ENOXAPARIN SODIUM 30 MG/0.3 ML SYRINGE SUBCUT SCH (08:41)
[2022-06-03] MEDS: ASPIRIN 81 MG TABLET(ECOTRIN) PO SCH (08:41)
[2022-06-03] MEDS: LEVOTHYROXINE SODIUM 0.05 MG TABLET PO SCH (08:50)
--- NOTE | 2022-06-03 10:11 | NUR ---
Shift Summary: patient is AAOX3. vitals are stable. patient updated on plan of care for shift. patient states she has no questions or concerns at this time. patient educated on use of call light if patient needs to ambulate for any reason due to patient being high risk for falls. patient states she understands. call light within reach, bed set to low, locked, and alarm on.
[2022-06-03 11:10] VITALS: BP_SYST 100
[2022-06-03 15:20] VITALS: BP_SYST 96
[2022-06-03] MEDS: DONEPEZIL HCL 5 MG TABLET (ARICEPT) PO SCH (21:00)
[2022-06-04 02:43] VITALS: BP_SYST 112
[2022-06-04 05:52] VITALS: BP_SYST 122
[2022-06-04] MEDS: LEVOTHYROXINE SODIUM 0.05 MG TABLET PO SCH (07:40)
[2022-06-04 08:00] VITALS: BP_SYST 111
--- NOTE | 2022-06-04 08:09 | NUR ---
closing notes pt n bed with safety precaution in place
[2022-06-04] MEDS: ASPIRIN 81 MG TABLET(ECOTRIN) PO SCH (09:08)
[2022-06-04] MEDS: MEMANTINE HCL 5 MG TABLET PO SCH (09:08)
[2022-06-04] MEDS: ENOXAPARIN SODIUM 30 MG/0.3 ML SYRINGE SUBCUT SCH (09:08)
--- NOTE | 2022-06-04 10:49 | NUR ---
Shift Summary: patient is AAXO2-3. vitals are stable. patient updated on plan of care for shift. patient states she has no questions or concerns at this time. patient educated on using call light if patient needs to ambulate for any reason due to patient being high risk for falls. patient states she understands. q2h turns continued. call light within reach, bed set to low, locked, and alarm on.
[2022-06-04 11:45] VITALS: BP_SYST 100
[2022-06-04] MEDS: HYDROcodone/ACETAMIN 5-325 MG TAB (NORCO/ VICODIN) PO PRN (12:04)
--- NOTE | 2022-06-04 15:37 | NUR ---
PHYSICAL THERAPY CO-SIGN The Physical Therapy Progress Notes documented by Shop Estimator have been reviewed. Reviewed/Co-Signed by: Cuco Goodson Documentation Done by:SAVAGE MORAN Addendum: 06/04/22 at 1537 by Cuco Goodson PT Amended: Links added.
--- NOTE | 2022-06-04 15:43 | NUR ---
Patient accepted at [facility] room 139 Number for report [phone]. Addendum: 06/04/22 at 1629 by Nicolle Aguilera RN Ambulance transport by Gee Gray [phone] at 5 PM- daughter notified of discharge and agreed to transfer.
[2022-06-04 15:50] VITALS: BP_SYST 108
[2022-06-04 16:40] VITALS: BP_SYST 111
--- NOTE | 2022-06-04 17:17 | NUR ---
Discharge Summary: patient is AAOX3. vitals are stable. PIV removed. patient and daughter given discharge instructions regarding activity, diet, follow up appointments, medication and halfway facility. patent and daughter state they have no questions or concerns upon discharge. patients daughter states she has all of patients personal belongings present with her upon discharge. patient going to [facility] in room 139 . report given to ELIZABETH Hayes. Abigail states she has no questions or concerns upon receiving report. bedside report given to JOHANN Griffiths [facility] [phone]. Tunde states he has no questions or concerns upon receiving patient. patient leaving unit on [facility] with assistance from transporters.
== END 2022-06-04 17:30 | DRG 516 ==
LOC: SED 12:36 → SMU 17:06
PROVIDERS: ADMIT Family Medicine; ATTEND Family Medicine
PROC: 0QSF04Z Reposition Left Patella with Internal Fixation Device, Open Approach (ICD-10-PCS; principal; 2022-05-27 10:21)
DX: S82.042A Displaced comminuted fracture of left patella, initial encounter for closed fracture (principal); S42.202A Unspecified fracture of upper end of left humerus, initial encounter for closed fracture; E83.51 Hypocalcemia; E03.9 Hypothyroidism, unspecified; G30.9 Alzheimer's disease, unspecified; R53.81 Other malaise; Z20.822 Contact with and (suspected) exposure to COVID-19; F02.80 Dementia in other diseases classified elsewhere, unspecified severity, without behavioral disturbance, psychotic disturbance, mood disturbance, and anxiety; D64.9 Anemia, unspecified; W18.39XA Other fall on same level, initial encounter; Z88.1 Allergy status to other antibiotic agents; Z88.8 Allergy status to other drugs, medicaments and biological substances; Z79.899 Other long term (current) drug therapy; Y93.89 Activity, other specified; Y92.89 Other specified places as the place of occurrence of the external cause; Y99.8 Other external cause status
CPT/HCPCS: 36415; 71045; 72170-TC; 73030; 73502; 73560-TC; 76000; 80048; 81003; 85025; 85610-TC; 85730-TC; 87081; 93005; 96360; 97110-GP; 97112-GP; 97116-GP; 97163-GP; 97530-GP; 99285; C1713; J0690; J1100; J1650; J1885; J2270; J2405; J2704; J2765; J3010; J3465; J3475; J7120; L1830